=== PATIENT | female | born 1945 | race Caucasian/White ===

== ENCOUNTER 2017-04-08 16:07 | Inpatient (IN) ==
[2017-04-08] MEDS ORDERED: CALMOSEPTINE OINTMENT TOP PRN (17:12)
[2017-04-08] MEDS ORDERED: NS 1,000 ML IV SCH (17:18)
--- NOTE | 2017-04-08 18:01 | Diag Imaging Result Doc PS360 ---
EXAM: CHEST-2 VIEWS INDICATION: r/o pna TECHNIQUE: 2 views COMPARISON: None. FINDINGS: Inspiration is suboptimal. There is minimal subsegmental atelectasis at the right lung base. The lungs are grossly clear, otherwise. There is no discrete pleural fluid collection or pneumothorax. 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 The cardiomediastinal silhouette and central vasculature are grossly unremarkable, otherwise. IMPRESSION: Low lung volumes and minimal right basilar atelectasis. No definite acute pathology, otherwise. Electronically signed by Davie Palafox 04/08/2017 5:58 PM
[2017-04-08 18:34] LABS: MANUAL DIFF NEEDED? NO
[2017-04-08 18:37] LABS: BASO% 0.2 % (0.0-0.8); EOS# 0.03 X1000 (0.0-0.7); EOS% 0.2 % (0.0-10.0); HEMOGLOBIN 12.7 g/dL (12.0-16.0); IMM GRAN# 0.06 X1000 (0.0-0.04); IMM GRAN% 0.3 % (0.0-0.5); LYMPH# 1.29 X1000 (1.2-3.4); MCH 29.3 PG (27-31); MCHC 33.4 g/dL (33-37); MCV 87.6 FL (81-99); MONO# 1.64 X1000 (0.11-0.59); MONO% 8.8 % (1.7-9.3); MPV 11.6 FL (7.4-10.4); NEUT% 83.5 % (42.2-75.2); PLT 219 X1000 (130-400); RBC 4.34 XMIL (4.2-5.4)
[2017-04-08 18:50] LABS: HEMOGLOBIN A1C 6.9 % (4.8-6.0)
[2017-04-08 19:14] LABS: IRON SATURATION 9 %; TIBC 276 ug/dL; TOTAL IRON 25 ug/dL (49-151); UNBOUND IRON 251 ug/dL (112-346)
[2017-04-08 19:26] LABS: ALBUMIN 3.8 g/dL (3.5-5.0); MAGNESIUM 1.7 mg/dL (1.5-2.7); TOTAL BILIRUBIN 0.44 mg/dL (0.20-1.00); TOTAL PROTEIN 6.8 g/dL (6.3-8.3)
[2017-04-08 19:34] LABS: FERRITIN 169 ng/mL (13-150)
[2017-04-08 20:01] LABS: PROTIME 153.2 Seconds (9.2-11.7)
[2017-04-08 20:02] LABS: INR > 8.32; PTT 97.6 Seconds (22.0-36.0)
[2017-04-08] MEDS ORDERED: VITAMIN K SUBQ ONE (22:25)
[2017-04-08] MEDS: ZOFRAN IV PRN (23:10)
[2017-04-09 03:46] LABS: HEMATOCRIT 36.1 % (37.0-47.0); HEMOGLOBIN 11.9 g/dL (12.0-16.0)
[2017-04-09 05:51] LABS: BASO% 0.1 % (0.0-0.8); HEMATOCRIT 35.1 % (37.0-47.0); HEMOGLOBIN 11.6 g/dL (12.0-16.0); IMM GRAN# 0.11 X1000 (0.0-0.04); IMM GRAN% 0.5 % (0.0-0.5); LYMPH% 4.7 % (20.5-51.1); MANUAL DIFF NEEDED? YES; MCH 28.9 PG (27-31); MCV 87.5 FL (81-99); MONO# 1.29 X1000 (0.11-0.59); MPV 11.9 FL (7.4-10.4); NEUT% 88.7 % (42.2-75.2); PLT 251 X1000 (130-400); RBC 4.01 XMIL (4.2-5.4)
[2017-04-09 06:19] LABS: ALBUMIN 3.3 g/dL (3.5-5.0); CALCIUM 8.2 mg/dL (8.8-10.2); MAGNESIUM 1.8 mg/dL (1.5-2.7); POTASSIUM 5.8 mmol/L (3.5-5.1); TOTAL BILIRUBIN 0.53 mg/dL (0.20-1.00); TOTAL PROTEIN 6.3 g/dL (6.3-8.3)
[2017-04-09] MEDS ORDERED: D50W SYRINGE IV ONE (06:33)
[2017-04-09] MEDS ORDERED: HUMULIN R IV ONE (06:34)
[2017-04-09] MEDS: NS 1,000 ML IV SCH ×3 (07:00→20:36)
[2017-04-09 07:03] LABS: PROTIME > 100.0 Seconds (9.2-11.7); PTT 97.6 Seconds (22.0-36.0)
[2017-04-09 07:12] LABS: INR > 8.32
[2017-04-09 07:34] LABS: BANDS 2 % (0-1); EOS 2 % (1-10); LYMPHS 2 % (21-51); MONO 4 % (1-9)
[2017-04-09] MEDS ORDERED: NS 1,000 ML IV ONE (08:16)
[2017-04-09] MEDS ORDERED: VITAMIN K SUBQ ONE (08:31)
[2017-04-09] MEDS ORDERED: NS 1,000 ML IV SCH (09:14)
[2017-04-09 10:40] LABS: ALLEN TEST YES; BE -8.7 mmoll (-3.0-3.0); BLOOD TYPE ARTERIAL; DRAW SITE R RADIAL; METHB 1.2 % (0.0-1.5); O2(CT) 13.7 mL/dL (15.0-23.0); PCO2(98.6) 44 mmHg (35-45); PO2(98.6) 423 mmHg (60-100); SAMPLE BLOOD; SAO2 99.5 % (95.0-100.0); THB 9.2 g/dL (11.5-17.4); pH(98.6) 7.23 (7.35-7.45)
[2017-04-09 10:42] LABS: MODALITY PRB
[2017-04-09 11:02] LABS: ALBUMIN 3.2 g/dL (3.5-5.0); CALCIUM 7.4 mg/dL (8.8-10.2); TOTAL BILIRUBIN 0.6 mg/dL (0.20-1.00); TOTAL PROTEIN 4.8 g/dL (6.3-8.3)
[2017-04-09 11:03] LABS: POTASSIUM 6.1 mmol/L (3.5-5.1)
[2017-04-09 11:10] LABS: PROTIME > 100.0 Seconds (9.2-11.7)
[2017-04-09 11:14] LABS: INR > 8.32
[2017-04-09 11:21] LABS: BASO% 0.1 % (0.0-0.8); EOS# 0.01 X1000 (0.0-0.7); HEMATOCRIT 29.1 % (37.0-47.0); HEMOGLOBIN 9.4 g/dL (12.0-16.0); IMM GRAN# 0.34 X1000 (0.0-0.04); IMM GRAN% 1.6 % (0.0-0.5); LYMPH# 0.96 X1000 (1.2-3.4); LYMPH% 4.6 % (20.5-51.1); MANUAL DIFF NEEDED? YES; MCH 28.9 PG (27-31); MCHC 32.3 g/dL (33-37); MCV 89.5 FL (81-99); MONO# 1.97 X1000 (0.11-0.59); MONO% 9.5 % (1.7-9.3); MPV 11.9 FL (7.4-10.4); NEUT% 84.2 % (42.2-75.2); PLT 204 X1000 (130-400); RBC 3.25 XMIL (4.2-5.4)
[2017-04-09 11:27] LABS: BANDS 10 % (0-1)
[2017-04-09] MEDS: HUMALOG SUBQ SCH ×4 (11:37→20:40)
[2017-04-09 16:39] LABS: ALBUMIN 3.3 g/dL (3.5-5.0); CALCIUM 7.4 mg/dL (8.8-10.2); POTASSIUM 4.9 mmol/L (3.5-5.1); TOTAL BILIRUBIN 0.44 mg/dL (0.20-1.00); TOTAL PROTEIN 5.8 g/dL (6.3-8.3)
[2017-04-09 18:20] LABS: BILIRUBIN URINE NEGATIVE (NEGATIVE); BLOOD URINE SMALL (NEGATIVE); COLOR YELLOW; GLUCOSE URINE TRACE mg/dL (NEGATIVE); LEUKOCYTES URINE SMALL (NEGATIVE); NITRITE URINE NEGATIVE (NEGATIVE); PROTEIN URINE 30 mg/dL (NEGATIVE); SP GRAVITY URINE 1.012; TURBIDITY URINE TURBID (CLEAR); URINE SOURCE CLEAN CATCH; UROBILINOGEN URINE NORMAL (NORMAL)
[2017-04-09 18:21] LABS: URINE MICRO REVIEW NEEDED? YES
[2017-04-09 18:26] LABS: UR EPITHELIAL CELLS >10 /HPF (<10); URINE BACTERIA NEGATIVE /HPF; URINE CULTURE NEEDED? YES; URINE RBC <10 /HPF (<10)
[2017-04-09 18:37] LABS: URINE CASTS NONE SEEN
[2017-04-09] MEDS: ZOFRAN IV PRN (19:19)
[2017-04-10] MEDS: NS 1,000 ML IV SCH ×3 (01:06→10:45)
[2017-04-10 05:36] LABS: INR 1.7; PROTIME 18.5 Seconds (9.2-11.7)
[2017-04-10] MEDS: HUMALOG SUBQ SCH ×4 (06:08→20:11)
[2017-04-10 06:30] LABS: ALBUMIN 3.1 g/dL (3.5-5.0); CALCIUM 6.7 mg/dL (8.8-10.2); MAGNESIUM 1.7 mg/dL (1.5-2.7); POTASSIUM 4.8 mmol/L (3.5-5.1); TOTAL BILIRUBIN 0.37 mg/dL (0.20-1.00); TOTAL PROTEIN 5.4 g/dL (6.3-8.3)
[2017-04-10] MEDS ORDERED: CALCIUM GLUCONATE 1 GM in NS 50 ML IV ONE (06:35)
[2017-04-10 09:13] LABS: BASO% 0.1 % (0.0-0.8); EOS# 0.05 X1000 (0.0-0.7); EOS% 0.3 % (0.0-10.0); HEMATOCRIT 22.1 % (37.0-47.0); IMM GRAN# 0.07 X1000 (0.0-0.04); IMM GRAN% 0.4 % (0.0-0.5); LYMPH# 0.94 X1000 (1.2-3.4); LYMPH% 5.6 % (20.5-51.1); MANUAL DIFF NEEDED? YES; MCHC 32.1 g/dL (33-37); MCV 90.2 FL (81-99); MONO# 1.37 X1000 (0.11-0.59); MONO% 8.2 % (1.7-9.3); MPV 11.3 FL (7.4-10.4); NEUT% 85.4 % (42.2-75.2); PLT 180 X1000 (130-400); RBC 2.45 XMIL (4.2-5.4)
[2017-04-10 09:14] LABS: HEMOGLOBIN 7.1 g/dL (12.0-16.0)
--- NOTE | 2017-04-10 12:02 | Diag Imaging Result Doc PS360 ---
CT ABDOMEN/PELVIS W/O CONTRAST - 04/10/2017 INDICATION: abd pain/suspecting bleeding TECHNIQUE: A CT dose reduction protocol was used. COMPARISON: CT abdomen pelvis 04/08/2017, from [facility] FINDINGS: There are trace pleural effusions that have worsened since prior. There appears to be an aortic valve replacement. Heart size remains top normal. There is worsening patchy infiltrate in the lung bases right greater than left. There is increase in the intraperitoneal hyperdense fluid compatible with hemoperitoneum. There is decrease in the abnormally gas-distended loops of small bowel in the pelvis compatible with severe ileus or mild obstruction. Stable small umbilical ventral hernia. No radiodense renal stones. No hydronephrosis or hydroureter. 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 There is some trace body wall edema about the pelvis but no large soft tissue hematoma. 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 There is severe osteoarthritis of the left hip. Healing bilateral sixth rib fractures. No definite acute bony lesions. IMPRESSION: 1. Slight increase in the hyperdense fluid consistent with hemoperitoneum. 2. Slight improvement in the abnormally gas-distended small bowel loops consistent with ileus or partial obstruction. 3. Worsening aeration of the lung bases. Nonspecific bibasilar infiltrates. Trace effusions. Electronically signed by Henry Pickens 04/10/2017 12:00 PM
[2017-04-10] MEDS ORDERED: NS 250 ML ONE (15:05)
[2017-04-10 16:22] LABS: UR CREAT RANDOM 38.3 mg/dL (11-20); UR PROT RANDOM 18.9 mg/dL
[2017-04-10 18:55] LABS: HEMATOCRIT 28.5 % (37.0-47.0); HEMOGLOBIN 9.4 g/dL (12.0-16.0)
[2017-04-10] MEDS: LASIX IV SCH (20:33)
[2017-04-10] MEDS: ALBUTEROL NEB INH PRN (22:52)
[2017-04-11 04:59] LABS: MANUAL DIFF NEEDED? NO
[2017-04-11 05:01] LABS: BASO% 0.1 % (0.0-0.8); EOS# 0.08 X1000 (0.0-0.7); EOS% 0.6 % (0.0-10.0); HEMATOCRIT 28.2 % (37.0-47.0); HEMOGLOBIN 9.4 g/dL (12.0-16.0); IMM GRAN# 0.04 X1000 (0.0-0.04); IMM GRAN% 0.3 % (0.0-0.5); LYMPH# 0.89 X1000 (1.2-3.4); LYMPH% 6.6 % (20.5-51.1); MCHC 33.3 g/dL (33-37); MCV 90.1 FL (81-99); MONO# 1.33 X1000 (0.11-0.59); MONO% 9.9 % (1.7-9.3); MPV 10.9 FL (7.4-10.4); NEUT% 82.5 % (42.2-75.2); PLT 201 X1000 (130-400); RBC 3.13 XMIL (4.2-5.4)
[2017-04-11 06:29] LABS: ALBUMIN 3.2 g/dL (3.5-5.0); MAGNESIUM 1.9 mg/dL (1.5-2.7); POTASSIUM 4.6 mmol/L (3.5-5.1); TOTAL BILIRUBIN 0.68 mg/dL (0.20-1.00); TOTAL PROTEIN 5.8 g/dL (6.3-8.3)
[2017-04-11 06:30] LABS: CALCIUM 6.9 mg/dL (8.8-10.2)
[2017-04-11] MEDS: HUMALOG SUBQ SCH ×4 (07:29→21:52)
[2017-04-11] MEDS: LASIX IV SCH (09:50)
[2017-04-11 09:53] LABS: INR 1.11; PROTIME 11.7 Seconds (9.2-11.7)
[2017-04-11] MEDS ORDERED: HEPARIN 25,000 UNITS/D5W 25,000 UNIT/250 ML IV.SOLN IV SCH ×2 (10:45→12:48)
[2017-04-11] MEDS ORDERED: VALIUM PO PRN (16:01)
--- NOTE | 2017-04-11 18:39 | Diag Imaging Result Doc PS360 ---
EXAM: CHEST-1 VIEW HISTORY: assess chf TECHNIQUE: AP portable at 1815 COMMENT: The inspiration is suboptimal. The heart size is at the upper limits of normal. There is no evidence of acute pulmonary disease. Compared to 04/08/2017 the inspiration is less optimal. There is a PICC line on the right the tip of which appears to be in the superior vena cava. IMPRESSION: No definite evidence of congestive heart failure. Poor inspiration. Electronically signed by Tadeo Carlson 04/11/2017 6:36 PM
[2017-04-11] MEDS ORDERED: HEPARIN IV PRN (19:02)
[2017-04-11] MEDS: HEPARIN 25,000 UNITS/D5W 25,000 UNIT/250 ML IV.SOLN IV SCH (19:12)
[2017-04-11] MEDS ORDERED: SEROQUEL PO SCH (21:00)
[2017-04-11] MEDS: COREG PO SCH (21:51)
[2017-04-12] MEDS: ZOFRAN IV PRN (00:38)
[2017-04-12] MEDS ORDERED: CORDARONE 150 MG/D5W 150 MG/100 ML IV.SOLN IV ONE (01:43)
[2017-04-12] MEDS ORDERED: CORDARONE 360 MG/D5W 360 MG/200 ML IV.SOLN IV ONE (01:43)
[2017-04-12] MEDS ORDERED: LANOXIN IV ONE (02:14)
[2017-04-12] MEDS ORDERED: NS 500 ML IV ONE (02:16)
[2017-04-12] MEDS ORDERED: NEO-SYNEPHRINE 50 MG in NS 250 ML IV SCH (02:34)
[2017-04-12 05:46] LABS: MANUAL DIFF NEEDED? NO
[2017-04-12 06:11] LABS: INR 1.05; PROTIME 11.1 Seconds (9.2-11.7)
[2017-04-12 06:26] LABS: MAGNESIUM 1.6 mg/dL (1.5-2.7); TOTAL BILIRUBIN 0.58 mg/dL (0.20-1.00); TOTAL PROTEIN 5.8 g/dL (6.3-8.3)
[2017-04-12 06:27] LABS: POTASSIUM 4.4 mmol/L (3.5-5.1)
[2017-04-12 06:37] LABS: CALCIUM 6.7 mg/dL (8.8-10.2)
[2017-04-12] MEDS ORDERED: CALCIUM GLUCONATE 1 GM in NS 50 ML IV ONE (06:51)
[2017-04-12 07:09] LABS: BASO% 0.1 % (0.0-0.8); EOS# 0.31 X1000 (0.0-0.7); EOS% 2.7 % (0.0-10.0); HEMATOCRIT 28.1 % (37.0-47.0); HEMOGLOBIN 9.1 g/dL (12.0-16.0); IMM GRAN# 0.03 X1000 (0.0-0.04); IMM GRAN% 0.3 % (0.0-0.5); LYMPH# 1.31 X1000 (1.2-3.4); LYMPH% 11.3 % (20.5-51.1); MCH 29.4 PG (27-31); MCHC 32.4 g/dL (33-37); MCV 90.6 FL (81-99); MONO% 15.6 % (1.7-9.3); MPV 11.3 FL (7.4-10.4); PLT 193 X1000 (130-400)
[2017-04-12] MEDS ORDERED: CORDARONE 540 MG in D5W 289.2 ML IV ONE (07:42)
[2017-04-12] MEDS: HEPARIN 25,000 UNITS/D5W 25,000 UNIT/250 ML IV.SOLN IV SCH (08:09)
[2017-04-12] MEDS: HUMALOG SUBQ SCH ×4 (08:09→20:39)
[2017-04-12] MEDS: COREG PO SCH ×2 (08:10→20:39)
[2017-04-12] MEDS ORDERED: REQUIP PO SCH (09:00)
[2017-04-12] MEDS: VITAMIN D PO SCH (11:25)
[2017-04-12] MEDS: PATIENT'S OWN MED PO SCH (11:26)
[2017-04-12] MEDS ORDERED: VALIUM PO PRN (13:36)
[2017-04-12] MEDS ORDERED: MAGNESIUM SULFATE 2 GM/S.W.I. 2 GM/50 ML IVPB IV ONE (13:44)
[2017-04-12] MEDS: ZOLOFT PO SCH (20:39)
[2017-04-13] MEDS: HEPARIN 25,000 UNITS/D5W 25,000 UNIT/250 ML IV.SOLN IV SCH ×2 (01:51→20:41)
[2017-04-13] MEDS: ALBUTEROL NEB INH PRN (04:19)
[2017-04-13 05:06] LABS: MANUAL DIFF NEEDED? NO
[2017-04-13 05:13] LABS: BASO% 0.1 % (0.0-0.8); EOS# 0.36 X1000 (0.0-0.7); EOS% 4.3 % (0.0-10.0); HEMATOCRIT 27.1 % (37.0-47.0); HEMOGLOBIN 8.8 g/dL (12.0-16.0); IMM GRAN# 0.03 X1000 (0.0-0.04); IMM GRAN% 0.4 % (0.0-0.5); LYMPH# 0.96 X1000 (1.2-3.4); LYMPH% 11.5 % (20.5-51.1); MCH 29.7 PG (27-31); MCHC 32.5 g/dL (33-37); MCV 91.6 FL (81-99); MONO# 1.27 X1000 (0.11-0.59); MONO% 15.2 % (1.7-9.3); MPV 10.8 FL (7.4-10.4); NEUT% 68.5 % (42.2-75.2); PLT 186 X1000 (130-400); RBC 2.96 XMIL (4.2-5.4)
[2017-04-13 05:21] LABS: INR 1.02; PROTIME 10.7 Seconds (9.2-11.7)
[2017-04-13 05:35] LABS: ALBUMIN 2.9 g/dL (3.5-5.0); CALCIUM 6.8 mg/dL (8.8-10.2); MAGNESIUM 2.1 mg/dL (1.5-2.7); POTASSIUM 4.6 mmol/L (3.5-5.1); TOTAL BILIRUBIN 0.39 mg/dL (0.20-1.00); TOTAL PROTEIN 5.5 g/dL (6.3-8.3)
[2017-04-13] MEDS ORDERED: CALCIUM GLUCONATE 1 GM in NS 50 ML IV ONE (05:59)
[2017-04-13] MEDS: HUMALOG SUBQ SCH ×4 (06:05→20:47)
[2017-04-13] MEDS: COREG PO SCH ×2 (10:01→20:47)
[2017-04-13] MEDS: PATIENT'S OWN MED PO SCH (10:02)
[2017-04-13] MEDS ORDERED: DULCOLAX PR ONE (13:14)
[2017-04-13] MEDS: COUMADIN PO SCH (20:42)
[2017-04-13] MEDS: CORDARONE PO SCH (20:46)
[2017-04-13] MEDS: ZOLOFT PO SCH (20:47)
[2017-04-14 05:12] LABS: MANUAL DIFF NEEDED? NO
[2017-04-14 05:14] LABS: BASO% 0.2 % (0.0-0.8); EOS# 0.53 X1000 (0.0-0.7); EOS% 5.6 % (0.0-10.0); HEMATOCRIT 27.6 % (37.0-47.0); HEMOGLOBIN 8.9 g/dL (12.0-16.0); IMM GRAN# 0.05 X1000 (0.0-0.04); IMM GRAN% 0.5 % (0.0-0.5); LYMPH# 1.31 X1000 (1.2-3.4); LYMPH% 13.7 % (20.5-51.1); MCH 29.5 PG (27-31); MCHC 32.2 g/dL (33-37); MCV 91.4 FL (81-99); MONO# 1.47 X1000 (0.11-0.59); MONO% 15.4 % (1.7-9.3); MPV 10.7 FL (7.4-10.4); NEUT% 64.6 % (42.2-75.2); PLT 215 X1000 (130-400); RBC 3.02 XMIL (4.2-5.4)
[2017-04-14 05:28] LABS: INR 0.99; PROTIME 10.4 Seconds (9.2-11.7)
[2017-04-14] MEDS: HUMALOG SUBQ SCH ×4 (06:03→20:07)
[2017-04-14 07:07] LABS: CALCIUM 7.1 mg/dL (8.8-10.2)
[2017-04-14] MEDS: COREG PO SCH ×2 (08:12→20:08)
[2017-04-14] MEDS: CORDARONE PO SCH ×2 (08:12→20:08)
[2017-04-14] MEDS: PATIENT'S OWN MED PO SCH (08:14)
[2017-04-14] MEDS ORDERED: LASIX IV ONE ×2 (10:47→14:45)
--- NOTE | 2017-04-14 15:00 | Diag Imaging Result Doc PS360 ---
CHEST-1 VIEW - 04/14/2017 INDICATION: wheezing and SOB TECHNIQUE: COMPARISON: 04/11/2017 FINDINGS: Stable right PICC line. Stable sternotomy changes. Stable cardiomegaly and mild pulmonary vascular congestion. There is worsening hazy infiltrate or atelectasis in the lung bases bilaterally. Lung volumes remain severely low. There are stable small pleural effusions. IMPRESSION: Worsening hazy infiltrate or atelectasis at the lung bases. Other findings are stable from prior. Electronically signed by Henry Pickens 04/14/2017 2:58 PM
[2017-04-14] MEDS: HEPARIN 25,000 UNITS/D5W 25,000 UNIT/250 ML IV.SOLN IV SCH (15:21)
[2017-04-14] MEDS: ALBUTEROL NEB INH PRN (15:31)
[2017-04-14] MEDS ORDERED: PRILOSEC PO ONE (16:30)
[2017-04-14] MEDS: COUMADIN PO SCH (20:08)
[2017-04-14] MEDS: ZOLOFT PO SCH (20:08)
[2017-04-14] MEDS ORDERED: CALMOSEPTINE OINTMENT TOP PRN (20:16)
[2017-04-15 05:07] LABS: MANUAL DIFF NEEDED? NO
[2017-04-15 05:20] LABS: INR 1.01; PROTIME 10.6 Seconds (9.2-11.7)
[2017-04-15 05:26] LABS: BASO% 0.2 % (0.0-0.8); EOS# 0.37 X1000 (0.0-0.7); EOS% 4.3 % (0.0-10.0); HEMATOCRIT 28.6 % (37.0-47.0); HEMOGLOBIN 9.2 g/dL (12.0-16.0); IMM GRAN# 0.07 X1000 (0.0-0.04); IMM GRAN% 0.8 % (0.0-0.5); LYMPH# 1.32 X1000 (1.2-3.4); LYMPH% 15.3 % (20.5-51.1); MCH 29.9 PG (27-31); MCHC 32.2 g/dL (33-37); MCV 92.9 FL (81-99); MONO# 1.22 X1000 (0.11-0.59); MONO% 14.2 % (1.7-9.3); MPV 10.7 FL (7.4-10.4); NEUT% 65.2 % (42.2-75.2); PLT 251 X1000 (130-400); RBC 3.08 XMIL (4.2-5.4)
[2017-04-15] MEDS: PRILOSEC PO SCH ×2 (05:53→07:19)
[2017-04-15] MEDS ORDERED: BLISTEX MEDICATED BERRY LIP BALM TOP PRN (05:58)
[2017-04-15 06:16] LABS: CALCIUM 7.2 mg/dL (8.8-10.2); POTASSIUM 5.2 mmol/L (3.5-5.1)
[2017-04-15] MEDS ORDERED: COUMADIN PO SCH (07:00)
[2017-04-15] MEDS: HUMALOG SUBQ SCH ×4 (07:19→22:10)
[2017-04-15] MEDS: PATIENT'S OWN MED PO SCH (08:18)
[2017-04-15] MEDS: CORDARONE PO SCH ×2 (08:18→22:08)
[2017-04-15] MEDS: COREG PO SCH ×2 (08:18→22:08)
[2017-04-15] MEDS: TYLENOL PO PRN (09:10)
--- NOTE | 2017-04-15 09:31 | Diag Imaging Result Doc PS360 ---
CHEST-1 VIEW - 04/15/2017 INDICATION: avr/chf TECHNIQUE: COMPARISON: 04/14/2017 FINDINGS: Stable sternotomy wires. Heart size and pulmonary vascularity is top normal. Stable trace bibasilar infiltrates or atelectasis. Stable trace bibasilar effusions. Stable low lung volumes. IMPRESSION: No change from prior. Electronically signed by Henry Pickens 04/15/2017 9:29 AM
[2017-04-15] MEDS: HEPARIN 25,000 UNITS/D5W 25,000 UNIT/250 ML IV.SOLN IV SCH (10:07)
[2017-04-15] MEDS: LASIX IV SCH (17:03)
[2017-04-15] MEDS: AYR NASAL SPRAY NAS PRN (17:04)
[2017-04-15] MEDS: ZOLOFT PO SCH (22:08)
[2017-04-15] MEDS: COUMADIN PO SCH (22:08)
[2017-04-15] MEDS: DULCOLAX PR PRN (22:08)
[2017-04-16] MEDS: NEO-SYNEPHRINE 1% NASAL SPRAY NAS SCH ×4 (00:09→22:18)
[2017-04-16 01:11] LABS: MANUAL DIFF NEEDED? NO
[2017-04-16 01:12] LABS: BASO% 0.3 % (0.0-0.8); HEMATOCRIT 30.4 % (37.0-47.0); HEMOGLOBIN 9.6 g/dL (12.0-16.0); IMM GRAN# 0.11 X1000 (0.0-0.04); IMM GRAN% 1.1 % (0.0-0.5); LYMPH# 1.59 X1000 (1.2-3.4); LYMPH% 15.8 % (20.5-51.1); MCH 29.2 PG (27-31); MCHC 31.6 g/dL (33-37); MCV 92.4 FL (81-99); MONO% 13.9 % (1.7-9.3); MPV 10.4 FL (7.4-10.4); NEUT% 63.9 % (42.2-75.2); PLT 289 X1000 (130-400); RBC 3.29 XMIL (4.2-5.4)
[2017-04-16 01:24] LABS: INR 1.12; PROTIME 11.9 Seconds (9.2-11.7)
[2017-04-16 01:27] LABS: PTT 67.4 Seconds (22.0-36.0)
[2017-04-16 02:32] LABS: CALCIUM 7.4 mg/dL (8.8-10.2)
[2017-04-16] MEDS: HEPARIN 25,000 UNITS/D5W 25,000 UNIT/250 ML IV.SOLN IV SCH ×3 (04:30→22:47)
[2017-04-16 05:19] LABS: INR 1.03; PROTIME 10.8 Seconds (9.2-11.7)
[2017-04-16] MEDS: HUMALOG SUBQ SCH ×4 (06:02→21:09)
[2017-04-16] MEDS: PRILOSEC PO SCH (06:02)
[2017-04-16 06:29] LABS: CALCIUM 7.5 mg/dL (8.8-10.2); POTASSIUM 4.7 mmol/L (3.5-5.1)
[2017-04-16] MEDS: LASIX IV SCH (08:27)
[2017-04-16] MEDS: COREG PO SCH ×2 (08:27→21:06)
[2017-04-16] MEDS: CORDARONE PO SCH ×2 (08:27→21:07)
[2017-04-16] MEDS: PATIENT'S OWN MED PO SCH (08:28)
[2017-04-16] MEDS: AYR NASAL SPRAY NAS PRN (21:06)
[2017-04-16] MEDS: COUMADIN PO SCH (21:07)
[2017-04-16] MEDS: ZOLOFT PO SCH (21:07)
[2017-04-17] MEDS: HEPARIN 25,000 UNITS/D5W 25,000 UNIT/250 ML IV.SOLN IV SCH ×2 (00:35→16:57)
[2017-04-17 05:05] LABS: MANUAL DIFF NEEDED? NO
[2017-04-17 05:09] LABS: BASO% 0.3 % (0.0-0.8); EOS# 0.42 X1000 (0.0-0.7); EOS% 4.2 % (0.0-10.0); HEMATOCRIT 31.5 % (37.0-47.0); LYMPH# 1.16 X1000 (1.2-3.4); LYMPH% 11.6 % (20.5-51.1); MCHC 31.7 g/dL (33-37); MCV 94.6 FL (81-99); MONO# 1.18 X1000 (0.11-0.59); MONO% 11.8 % (1.7-9.3); MPV 10.7 FL (7.4-10.4); NEUT% 71.1 % (42.2-75.2); PLT 299 X1000 (130-400); RBC 3.33 XMIL (4.2-5.4)
[2017-04-17 05:21] LABS: INR 1.11; PROTIME 11.7 Seconds (9.2-11.7)
[2017-04-17] MEDS: PRILOSEC PO SCH (06:13)
[2017-04-17] MEDS: HUMALOG SUBQ SCH ×4 (06:13→21:31)
[2017-04-17 06:31] LABS: CALCIUM 7.5 mg/dL (8.8-10.2); POTASSIUM 5.5 mmol/L (3.5-5.1)
--- NOTE | 2017-04-17 07:31 | Diag Imaging Result Doc PS360 ---
CHEST-PORTABLE - 04/17/2017 INDICATION: dyspnea TECHNIQUE: COMPARISON: 04/15/2017 FINDINGS: Stable sternotomy wires. Stable severely low lung volumes. Stable left basilar infiltrate or atelectasis. Slight worsening atelectasis or infiltrate at the right hilum. Pulmonary vascularity appears grossly normal. IMPRESSION: Minimal worsening atelectasis or infiltrate at the right hilum. Electronically signed by Henry Pickens 04/17/2017 7:29 AM
[2017-04-17] MEDS: D5W 1,000 ML IV SCH ×2 (08:00→21:29)
[2017-04-17] MEDS: NEO-SYNEPHRINE 1% NASAL SPRAY NAS SCH (08:00)
[2017-04-17] MEDS: CORDARONE PO SCH ×2 (08:00→21:30)
[2017-04-17] MEDS: COREG PO SCH ×2 (08:00→21:30)
[2017-04-17] MEDS: PATIENT'S OWN MED PO SCH (08:01)
[2017-04-17] MEDS ORDERED: BACTROBAN OINTMENT TOP ONE (09:35)
[2017-04-17] MEDS: AFRIN NASAL SPRAY NAS ONE ×2 (09:47→10:07)
--- NOTE | 2017-04-17 15:06 | Diag Imaging Result Doc PS360 ---
EXAM: CT THORAX W/O CONTRAST - 04/17/2017 HISTORY: pneumonia TECHNIQUE: Without contrast per request the referring provider. Dose reduction protocol. COMPARISON: None. FINDINGS: There is atelectasis of the dependent portions of the bilateral lower lobes. There is atelectasis at the posterior inferior medial right upper lobe. Is not clear if there is any underlying pneumonia in the areas of atelectasis. There is no other consolidation identified. There are apparent small bilateral pleural effusions. There is no pneumothorax seen. There are apparent calcifications in the fowler of the trachea and central bronchi compatible with long-standing change. There is no mediastinal adenopathy identified. There is a prosthetic aortic valve noted. IMPRESSION: Atelectasis of the dependent portions of the bilateral lower lobes. Atelectasis at posterior inferior medial right upper lobe. Is not clear whether there is any underlying pneumonia present in these areas. Apparent small bilateral pleural effusions. Electronically signed by Ranjith Trotter 04/17/2017 3:04 PM
[2017-04-17] MEDS: DUONEB (A & A) INH SCH ×2 (15:52→21:30)
[2017-04-17] MEDS: AYR NASAL SPRAY NAS SCH ×2 (16:58→21:29)
[2017-04-17] MEDS: COUMADIN PO SCH (21:30)
[2017-04-17] MEDS: DOXYCYCLINE PO SCH (21:30)
[2017-04-17] MEDS: ZOLOFT PO SCH (21:30)
[2017-04-18] MEDS: DUONEB (A & A) INH SCH ×4 (03:20→22:55)
[2017-04-18 03:28] LABS: BLOOD TYPE ARTERIAL; SAMPLE BLOOD
[2017-04-18 03:29] LABS: ALLEN TEST YES; BE 9.8 mmoll (-3.0-3.0); DRAW SITE R RADIAL; O2(CT) 12.5 mL/dL (15.0-23.0); PO2(98.6) 76 mmHg (60-100); SAO2 97.7 % (95.0-100.0); THB 9.3 g/dL (11.5-17.4); pH(98.6) 7.39 (7.35-7.45)
[2017-04-18 03:31] LABS: MODALITY VENTIMASK; PCO2(98.6) 60 mmHg (35-45)
[2017-04-18 05:04] LABS: HEMATOCRIT 29.1 % (37.0-47.0); HEMOGLOBIN 9.1 g/dL (12.0-16.0); MCH 30.2 PG (27-31); MCHC 31.3 g/dL (33-37); MCV 96.7 FL (81-99); MPV 10.7 FL (7.4-10.4); RBC 3.01 XMIL (4.2-5.4)
[2017-04-18 05:25] LABS: ALKALINE PHOSPHATASE 61 U/L (32-104); DIRECT BILIRUBIN < 0.20 mg/dL (0.00-0.20); GOT 24 U/L (10-30); GPT 55 U/L (10-36); TOTAL BILIRUBIN 0.34 mg/dL (0.20-1.00); TOTAL PROTEIN 5.7 g/dL (6.3-8.3)
[2017-04-18 05:26] LABS: CALCIUM 7.3 mg/dL (8.8-10.2); INR 1.35; POTASSIUM 4.4 mmol/L (3.5-5.1); PROTIME 14.5 Seconds (9.2-11.7)
[2017-04-18] MEDS: PRILOSEC PO SCH (06:23)
[2017-04-18] MEDS: TYLENOL PO PRN ×3 (06:24→20:42)
[2017-04-18] MEDS: HUMALOG SUBQ SCH ×4 (06:30→20:43)
--- NOTE | 2017-04-18 07:36 | Diag Imaging Result Doc PS360 ---
CHEST-PORTABLE - 04/18/2017 INDICATION: dyspnea TECHNIQUE: COMPARISON: 04/17/2017 FINDINGS: Stable right PICC line. Stable sternotomy wires. There is slight worsening in the left basilar ill-defined alveolar infiltrate and probable small effusion. Stable cardiomegaly and pulmonary vascular congestion. IMPRESSION: Slight worsening from prior. Electronically signed by Henry Pickens 04/18/2017 7:34 AM
[2017-04-18] MEDS: ZOSYN 3.375 GM in NS 50 ML IV SCH ×3 (08:32→22:13)
[2017-04-18] MEDS: MAXIPIME 1 GM in NS 50 ML IV SCH ×2 (08:33→20:39)
[2017-04-18] MEDS: COREG PO SCH ×2 (08:33→20:43)
[2017-04-18] MEDS: DOXYCYCLINE PO SCH ×2 (08:33→20:42)
[2017-04-18] MEDS: CORDARONE PO SCH ×2 (08:33→20:43)
[2017-04-18] MEDS: AYR NASAL SPRAY NAS SCH ×4 (08:33→20:42)
[2017-04-18] MEDS: D5W 1,000 ML IV SCH ×2 (08:34→20:43)
[2017-04-18] MEDS: PATIENT'S OWN MED PO SCH (08:34)
[2017-04-18 10:12] LABS: URINE SOURCE CATH
[2017-04-18 10:26] LABS: BILIRUBIN URINE NEGATIVE (NEGATIVE); BLOOD URINE NEGATIVE (NEGATIVE); COLOR YELLOW; GLUCOSE URINE NEGATIVE (NEGATIVE); LEUKOCYTES URINE LARGE (NEGATIVE); NITRITE URINE NEGATIVE (NEGATIVE); PROTEIN URINE NEGATIVE (NEGATIVE); SP GRAVITY URINE 1.009; TURBIDITY URINE HAZY (CLEAR); UROBILINOGEN URINE NORMAL (NORMAL)
[2017-04-18 10:31] LABS: UR EPITHELIAL CELLS >10 /HPF (<10); URINE BACTERIA 1+ /HPF; URINE CULTURE NEEDED? YES; URINE MICRO REVIEW NEEDED? YES; URINE RBC 20-40 /HPF (<10); URINE WBC TNTC /HPF (<10)
[2017-04-18 10:32] LABS: URINE CASTS NONE SEEN
[2017-04-18] MEDS: HEPARIN 25,000 UNITS/D5W 25,000 UNIT/250 ML IV.SOLN IV SCH (11:13)
[2017-04-18] MEDS: COUMADIN PO SCH (20:43)
[2017-04-18] MEDS: ZOLOFT PO SCH (20:43)
[2017-04-19] MEDS: ZOSYN 3.375 GM in NS 50 ML IV SCH ×4 (01:09→20:12)
[2017-04-19] MEDS: DUONEB (A & A) INH SCH ×4 (03:00→22:38)
[2017-04-19] MEDS: TYLENOL PO PRN ×2 (03:40→20:11)
[2017-04-19] MEDS: HEPARIN 25,000 UNITS/D5W 25,000 UNIT/250 ML IV.SOLN IV SCH (04:53)
[2017-04-19 05:14] LABS: ALLEN TEST YES; BE 4.3 mmoll (-3.0-3.0); BLOOD TYPE ARTERIAL; DRAW SITE R RADIAL; METHB 0.2 % (0.0-1.5); O2(CT) 17.3 mL/dL (15.0-23.0); PO2(98.6) 72 mmHg (60-100); SAMPLE BLOOD; SAO2 98.7 % (95.0-100.0); pH(98.6) 7.36 (7.35-7.45)
[2017-04-19 05:16] LABS: MODALITY VENTIMASK; PCO2(98.6) 55 mmHg (35-45)
[2017-04-19 06:04] LABS: CALCIUM 7.2 mg/dL (8.8-10.2); INR 1.82; POTASSIUM 4.1 mmol/L (3.5-5.1); PROTIME 19.9 Seconds (9.2-11.7)
[2017-04-19 06:06] LABS: ALBUMIN 3.2 g/dL (3.5-5.0); ALKALINE PHOSPHATASE 53 U/L (32-104); DIRECT BILIRUBIN < 0.20 mg/dL (0.00-0.20); GOT 31 U/L (10-30); GPT 48 U/L (10-36); TOTAL BILIRUBIN 0.47 mg/dL (0.20-1.00); TOTAL PROTEIN 5.4 g/dL (6.3-8.3)
[2017-04-19] MEDS: PRILOSEC PO SCH (06:48)
[2017-04-19] MEDS: HUMALOG SUBQ SCH ×4 (06:48→21:50)
--- NOTE | 2017-04-19 07:39 | Diag Imaging Result Doc PS360 ---
EXAM: KUB ABDOMEN - 04/19/2017 HISTORY: distention TECHNIQUE: AP spine abdomen COMPARISON: Outside exam from [facility] of 04/08/2017 FINDINGS: There is been interval decrease in gaseous distention of small bowel and stomach. There is no substantial gaseous small bowel distention identified. There is gas visible in mostly nondistended colon. IMPRESSION: Nonspecific bowel gas pattern. There is been interval decrease in gaseous distention of small bowel stomach compared to 04/08/2017. Electronically signed by Ranjith Trotter 04/19/2017 7:37 AM
--- NOTE | 2017-04-19 07:43 | Diag Imaging Result Doc PS360 ---
EXAM: CHEST-2 VIEWS - 04/19/2017 HISTORY: abnormal exam TECHNIQUE: Chest two views COMPARISON: Portable exam of 04/18/2017 FINDINGS: There is atelectasis plus minus infiltrate at the left lower lobe similar to the previous exam. There is possible small left pleural effusion. There is mild perihilar atelectasis or infiltrate on the right. There is been apparent resolution of vascular congestion. There is no pneumothorax. Heart size appears upper normal. IMPRESSION: Persistent atelectasis plus minus infiltrate at left base. Mild perihilar atelectasis or infiltrate on the right. Electronically signed by Ranjith Trotter 04/19/2017 7:40 AM
[2017-04-19] MEDS: MAXIPIME 1 GM in NS 50 ML IV SCH ×2 (08:32→20:10)
[2017-04-19] MEDS: CORDARONE PO SCH ×2 (08:35→20:11)
[2017-04-19] MEDS: DOXYCYCLINE PO SCH ×2 (08:35→20:13)
[2017-04-19] MEDS: COREG PO SCH ×2 (08:35→20:11)
[2017-04-19] MEDS: PATIENT'S OWN MED PO SCH (08:36)
[2017-04-19] MEDS: AYR NASAL SPRAY NAS SCH ×4 (08:37→20:11)
[2017-04-19] MEDS: VITAMIN D PO SCH (09:41)
[2017-04-19] MEDS: D5W 1,000 ML IV SCH (11:03)
[2017-04-19] MEDS ORDERED: VANCOMYCIN IV PER PHARMACY MISC SCH (12:30)
[2017-04-19] MEDS ORDERED: VANCOMYCIN 1,600 MG in NS 250 ML IV ONE (15:00)
[2017-04-19] MEDS: ZOLOFT PO SCH (20:11)
[2017-04-19] MEDS: COUMADIN PO SCH (20:11)
[2017-04-20] MEDS: HEPARIN 25,000 UNITS/D5W 25,000 UNIT/250 ML IV.SOLN IV SCH ×2 (01:59→07:56)
[2017-04-20] MEDS: ZOSYN 3.375 GM in NS 50 ML IV SCH ×2 (02:00→08:51)
[2017-04-20] MEDS: DUONEB (A & A) INH SCH ×4 (03:11→23:41)
[2017-04-20] MEDS: TYLENOL PO PRN ×2 (04:31→14:06)
[2017-04-20] MEDS: HUMALOG SUBQ SCH ×4 (06:40→22:20)
[2017-04-20] MEDS: PRILOSEC PO SCH (06:41)
[2017-04-20 06:42] LABS: INR 2.62; PROTIME 29.2 Seconds (9.2-11.7)
[2017-04-20 07:49] LABS: CALCIUM 7.6 mg/dL (8.8-10.2); POTASSIUM 4.1 mmol/L (3.5-5.1)
[2017-04-20] MEDS: MAXIPIME 1 GM in NS 50 ML IV SCH (07:53)
[2017-04-20 08:01] LABS: DIRECT BILIRUBIN < 0.20 mg/dL (0.00-0.20); TOTAL BILIRUBIN 0.45 mg/dL (0.20-1.00)
[2017-04-20 08:02] LABS: ALBUMIN 3.1 g/dL (3.5-5.0); ALKALINE PHOSPHATASE 53 U/L (32-104); GOT 28 U/L (10-30); GPT 41 U/L (10-36); TOTAL PROTEIN 5.9 g/dL (6.3-8.3)
[2017-04-20] MEDS ORDERED: HEPARIN 25,000 UNITS/D5W 25,000 UNIT/250 ML IV.SOLN IV SCH (08:20)
[2017-04-20] MEDS: AYR NASAL SPRAY NAS SCH ×4 (08:52→22:19)
[2017-04-20] MEDS: COREG PO SCH ×2 (08:52→21:24)
[2017-04-20] MEDS: CORDARONE PO SCH (08:52)
[2017-04-20] MEDS: DOXYCYCLINE PO SCH ×2 (08:53→23:04)
[2017-04-20] MEDS: PATIENT'S OWN MED PO SCH (08:53)
[2017-04-20] MEDS: COUMADIN PO SCH (21:24)
[2017-04-20] MEDS: AMOXIL PO SCH (21:24)
[2017-04-20] MEDS: ZOLOFT PO SCH (21:24)
[2017-04-21] MEDS: DUONEB (A & A) INH SCH ×4 (04:09→22:44)
[2017-04-21] MEDS: PRILOSEC PO SCH ×2 (05:06→06:41)
[2017-04-21] MEDS: HEPARIN 25,000 UNITS/D5W 25,000 UNIT/250 ML IV.SOLN IV SCH (05:07)
[2017-04-21 05:34] LABS: INR 3.25; PROTIME 36.8 Seconds (9.2-11.7)
[2017-04-21] MEDS: HUMALOG SUBQ SCH ×4 (06:41→23:04)
[2017-04-21] MEDS: AMOXIL PO SCH ×2 (09:04→22:17)
[2017-04-21] MEDS: COREG PO SCH ×2 (09:04→22:18)
[2017-04-21] MEDS: CORDARONE PO SCH (09:04)
[2017-04-21] MEDS: AYR NASAL SPRAY NAS SCH ×4 (09:07→23:09)
[2017-04-21] MEDS: PATIENT'S OWN MED PO SCH (10:58)
[2017-04-21] MEDS ORDERED: VANCOMYCIN 1,250 MG in NS 250 ML IV SCH (15:00)
[2017-04-21] MEDS: TYLENOL PO PRN ×2 (15:10→22:17)
[2017-04-21] MEDS: ZOLOFT PO SCH (22:18)
[2017-04-22] MEDS: DUONEB (A & A) INH SCH ×4 (03:56→22:09)
[2017-04-22] MEDS: PRILOSEC PO SCH ×2 (05:29→06:08)
[2017-04-22] MEDS: DULCOLAX PR PRN (05:30)
[2017-04-22 05:59] LABS: INR 2.72; PROTIME 30.4 Seconds (9.2-11.7)
[2017-04-22] MEDS: HUMALOG SUBQ SCH ×4 (06:09→20:28)
--- NOTE | 2017-04-22 07:10 | Diag Imaging Result Doc PS360 ---
EXAM: CHEST-1 VIEW HISTORY: SOB TECHNIQUE: Erect AP portable at 0610 COMMENT: There is pleural effusion and some questionable hazy opacity in the left lower lobe. This has improved somewhat since the previous study of 04/19/2017 and the subsegmental atelectasis over the right base has also improved. IMPRESSION: Improved atelectasis and pulmonary edema versus pneumonia. Left pleural effusion. Electronically signed by Tadeo Carlson 04/22/2017 7:08 AM
[2017-04-22] MEDS: AMOXIL PO SCH ×2 (08:09→20:26)
[2017-04-22] MEDS: COREG PO SCH ×2 (08:09→20:25)
[2017-04-22] MEDS: CORDARONE PO SCH (08:09)
[2017-04-22] MEDS: PATIENT'S OWN MED PO SCH (08:10)
[2017-04-22] MEDS: AYR NASAL SPRAY NAS SCH ×4 (08:10→23:02)
[2017-04-22] MEDS: ZOLOFT PO SCH (20:26)
[2017-04-22] MEDS ORDERED: COUMADIN PO SCH (21:00)
[2017-04-22] MEDS: TYLENOL PO PRN (23:12)
[2017-04-23] MEDS: DUONEB (A & A) INH SCH ×4 (03:23→21:58)
[2017-04-23 05:05] LABS: MANUAL DIFF NEEDED? NO
[2017-04-23 05:09] LABS: BASO% 0.4 % (0.0-0.8); EOS# 0.18 X1000 (0.0-0.7); EOS% 2.3 % (0.0-10.0); HEMATOCRIT 30.2 % (37.0-47.0); HEMOGLOBIN 9.5 g/dL (12.0-16.0); IMM GRAN# 0.04 X1000 (0.0-0.04); IMM GRAN% 0.5 % (0.0-0.5); LYMPH# 1.26 X1000 (1.2-3.4); LYMPH% 16.1 % (20.5-51.1); MCHC 31.5 g/dL (33-37); MCV 95.3 FL (81-99); MONO# 0.86 X1000 (0.11-0.59); MPV 10.9 FL (7.4-10.4); NEUT% 69.7 % (42.2-75.2); PLT 232 X1000 (130-400); RBC 3.17 XMIL (4.2-5.4)
[2017-04-23 05:16] LABS: INR 1.98; PROTIME 21.7 Seconds (9.2-11.7)
[2017-04-23 05:45] LABS: ALBUMIN 3.2 g/dL (3.5-5.0); CALCIUM 7.1 mg/dL (8.8-10.2); MAGNESIUM 1.4 mg/dL (1.5-2.7); POTASSIUM 4.4 mmol/L (3.5-5.1); TOTAL BILIRUBIN 0.55 mg/dL (0.20-1.00); TOTAL PROTEIN 5.3 g/dL (6.3-8.3)
[2017-04-23] MEDS: PRILOSEC PO SCH (06:27)
[2017-04-23] MEDS: HUMALOG SUBQ SCH ×4 (06:28→21:51)
[2017-04-23] MEDS: COREG PO SCH ×2 (08:23→21:50)
[2017-04-23] MEDS: AMOXIL PO SCH ×2 (08:23→21:50)
[2017-04-23] MEDS: AYR NASAL SPRAY NAS SCH ×4 (08:23→21:52)
[2017-04-23] MEDS: CORDARONE PO SCH (08:23)
[2017-04-23] MEDS: PATIENT'S OWN MED PO SCH (08:24)
[2017-04-23 10:43] LABS: MANUAL DIFF NEEDED? NO
[2017-04-23 10:46] LABS: BASO% 0.4 % (0.0-0.8); EOS% 2.6 % (0.0-10.0); HEMATOCRIT 31.5 % (37.0-47.0); HEMOGLOBIN 9.7 g/dL (12.0-16.0); IMM GRAN# 0.04 X1000 (0.0-0.04); IMM GRAN% 0.5 % (0.0-0.5); LYMPH# 0.93 X1000 (1.2-3.4); MCH 29.5 PG (27-31); MCHC 30.8 g/dL (33-37); MCV 95.7 FL (81-99); MONO# 0.86 X1000 (0.11-0.59); MONO% 11.1 % (1.7-9.3); MPV 10.7 FL (7.4-10.4); NEUT% 73.4 % (42.2-75.2); PLT 231 X1000 (130-400); RBC 3.29 XMIL (4.2-5.4)
[2017-04-23 11:15] LABS: ALBUMIN 3.2 g/dL (3.5-5.0); CALCIUM 7.5 mg/dL (8.8-10.2); MAGNESIUM 1.3 mg/dL (1.5-2.7); POTASSIUM 4.1 mmol/L (3.5-5.1); TOTAL BILIRUBIN 0.53 mg/dL (0.20-1.00); TOTAL PROTEIN 5.8 g/dL (6.3-8.3)
[2017-04-23] MEDS ORDERED: MAGNESIUM SULFATE 2 GM/S.W.I. 2 GM/50 ML IVPB IV ONE (21:41)
[2017-04-23] MEDS ORDERED: RESTORIL PO ONE (21:42)
[2017-04-23] MEDS: COUMADIN PO SCH (21:50)
[2017-04-23] MEDS: ZOLOFT PO SCH (21:50)
[2017-04-24] MEDS: ZOFRAN IV PRN (00:02)
[2017-04-24] MEDS: DUONEB (A & A) INH SCH ×4 (03:31→21:17)
[2017-04-24 05:14] LABS: INR 1.51; PROTIME 16.3 Seconds (9.2-11.7)
[2017-04-24] MEDS: HUMALOG SUBQ SCH ×4 (06:31→20:34)
[2017-04-24] MEDS: PRILOSEC PO SCH (06:36)
[2017-04-24] MEDS: COREG PO SCH ×2 (08:52→20:34)
[2017-04-24] MEDS: CORDARONE PO SCH (08:52)
[2017-04-24] MEDS: AMOXIL PO SCH ×2 (08:52→20:33)
[2017-04-24] MEDS: AYR NASAL SPRAY NAS SCH ×4 (08:53→20:34)
[2017-04-24] MEDS: PATIENT'S OWN MED PO SCH (08:53)
[2017-04-24] MEDS: ZOLOFT PO SCH (20:34)
[2017-04-24] MEDS: COUMADIN PO SCH (20:34)
[2017-04-24] MEDS: TYLENOL PO PRN (23:10)
[2017-04-25] MEDS: DUONEB (A & A) INH SCH ×3 (03:06→15:21)
[2017-04-25 05:09] LABS: MANUAL DIFF NEEDED? NO
[2017-04-25 05:15] LABS: BASO% 0.1 % (0.0-0.8); EOS# 0.24 X1000 (0.0-0.7); EOS% 3.2 % (0.0-10.0); HEMATOCRIT 30.6 % (37.0-47.0); HEMOGLOBIN 9.5 g/dL (12.0-16.0); IMM GRAN# 0.04 X1000 (0.0-0.04); IMM GRAN% 0.5 % (0.0-0.5); LYMPH# 1.17 X1000 (1.2-3.4); LYMPH% 15.7 % (20.5-51.1); MCH 29.8 PG (27-31); MCV 95.9 FL (81-99); MONO# 0.88 X1000 (0.11-0.59); MONO% 11.8 % (1.7-9.3); MPV 11.2 FL (7.4-10.4); NEUT% 68.7 % (42.2-75.2); PLT 199 X1000 (130-400); RBC 3.19 XMIL (4.2-5.4)
[2017-04-25 05:33] LABS: INR 1.43; PROTIME 15.4 Seconds (9.2-11.7)
[2017-04-25] MEDS: HUMALOG SUBQ SCH ×2 (06:04→12:35)
[2017-04-25 06:06] LABS: CALCIUM 7.8 mg/dL (8.8-10.2); POTASSIUM 4.2 mmol/L (3.5-5.1)
[2017-04-25] MEDS: PRILOSEC PO SCH (06:16)
[2017-04-25] MEDS: AMOXIL PO SCH (08:38)
[2017-04-25] MEDS: CORDARONE PO SCH (08:39)
[2017-04-25] MEDS: AYR NASAL SPRAY NAS SCH ×2 (08:39→12:35)
[2017-04-25] MEDS: COREG PO SCH (08:39)
[2017-04-25] MEDS: PATIENT'S OWN MED PO SCH (10:42)
[2017-04-25] MEDS ORDERED: COUMADIN PO SCH (13:17)
[2017-04-25] MEDS ORDERED: LOVENOX SUBQ SCH (13:30)
[2017-04-25] MEDS: TYLENOL PO PRN (13:32)
[2017-04-25 15:41] VITALS: BP 110/55
== END 2017-04-25 18:00 ==
LOC: DIRADM 16:07 → SUATTDRO 16:07 → 4N 16:41 → ICU 04-09 08:36 → 3N 04-11 15:59 → 3S 04-12 02:22
PROVIDERS: ATTEND Internal Medicine